=== PATIENT | male | born 1985 | race African-American/Black ===

== ENCOUNTER 2024-02-21 02:17 | Emergency (ER) | payer MEDICAID ==
[~2024-02-21] VITALS: Ht 180.3 cm; Wt 86.0 kg
[2024-02-21 02:25] VITALS: O2SAT 98
[2024-02-21 02:36] VITALS: BP 145/92; PULSE 80; RESP 18; TEMP 98.4; O2SAT 100
[2024-02-21] MEDS ORDERED: HYDR453.3 TP (03:17)
== END 2024-02-21 03:23 | disposition home or self-care (01) ==
LOC: ER 02:17
DX: K64.4 Residual hemorrhoidal skin tags (principal)
CPT/HCPCS: 99282

== ENCOUNTER 2024-03-12 12:29 | Emergency (ER) | payer MEDICAID ==
[~2024-03-12] VITALS: Ht 180.3 cm; Wt 83.1 kg
[~2024-03-12 12:29] MED LIST: HYDR453.3 TP
[2024-03-12 12:32] VITALS: PULSE 85; O2SAT 100
[2024-03-12 12:39] VITALS: BP 151/98; RESP 16; TEMP 36.6; O2SAT 98
== END 2024-03-12 15:10 | disposition home or self-care (01) ==
LOC: ER 12:29
DX: B34.9 Viral infection, unspecified (principal)
CPT/HCPCS: 71045; 99283

== ENCOUNTER 2024-12-31 22:21 | Emergency (ER) | payer MEDICAID ==
[~2024-12-31] VITALS: Ht 182.9 cm; Wt 82.0 kg
[2024-12-31 22:26] VITALS: O2SAT 97
[2024-12-31] MEDS: METOCLOPRAMIDE HCL 10MG TABLET PO ONE (23:22)
[2024-12-31] MEDS: ACETAMINOPHEN 500MG TABLET PO ONE (23:22)
[2025-01-01] MEDS ORDERED: LIDO-53 TP (00:44)
[2025-01-01] MEDS ORDERED: NAPR-1176 MT (00:44)
[2025-01-01 01:12] VITALS: BP 140/87; PULSE 88; RESP 18; TEMP 36.9; O2SAT 97
== END 2025-01-01 01:15 | disposition home or self-care (01) ==
LOC: ER 22:21
DX: S09.90XA Unspecified injury of head, initial encounter (principal); M25.511 Pain in right shoulder; Z79.1 Long term (current) use of non-steroidal anti-inflammatories (NSAID); Z79.899 Other long term (current) drug therapy; Y04.0XXA Assault by unarmed brawl or fight, initial encounter; Y93.89 Activity, other specified; Y92.89 Other specified places as the place of occurrence of the external cause; Y99.8 Other external cause status
CPT/HCPCS: 99284; 73030; 70450; J8597